=== PATIENT | male | born 1985 | race Caucasian/White ===

== ENCOUNTER 2019-11-01 21:07 | Emergency (ER) | payer OTHER, BC ==
--- NOTE | 2019-11-01 21:31 | EDM.PDOC ---
ED HPI GENERAL MEDICAL PROBLEM - General Chief Complaint: Skin Complaint Stated Complaint: POSSIBLE SPIDER BITE Time Seen by Provider: 11/01/19 21:07 Source of Information: Reports: Patient, Old Records History Limitations: Reports: No Limitations - History of Present Illness INITIAL COMMENTS - FREE TEXT/NARRATIVE: 34-year-old male with no past medical history presenting with concern for an infection of the right lower leg. Patient reports approximately 5 to 6 days of redness, pain, and swelling to the anterior aspect of the right lower leg. He developed a blister that he popped several days ago, which then began leaking pus. He was seen by a primary care clinic who prescribed oral Bactrim. He was concerned about persistent drainage of pus and redness so he comes to the emergency department for evaluation. He states that he has been on the Bactrim for at least 3 to 4 days. Denies any fever, chills, nausea, vomiting, diarrhea, history of immunosuppression. Past medical history: Reviewed, no additional pertinent history. Surgical history: Reviewed in system, no additional pertinent history. Social history: Reviewed in system, no additional pertinent history. Family history: Reviewed in system, no additional pertinent history. PHYSICAL EXAM Vital signs reviewed. Nursing notes reviewed. Constitutional: Awake, alert, non-distressed. Head: Normocephalic, atraumatic. Eyes: EOMI, conjunctiva normal, no discharge, no scleral icterus. Ears, Nose, Throat: External ears and nose normal, moist oral mucosa. Cardiovascular: 2+ radial pulse, capillary refill less than 2 seconds. Pulmonary: normal work of breathing, no accessory muscle use. Abdomen/GI: Soft, nontender, nondistended, no guarding or rigidity, no masses. Musculoskeletal: No deformities. Integumentary: Appropriate color for ethnicity, warm, dry, no pallor or jaundice, no rash. Erythema and warmth noted to the anterior aspect of the right lower leg consistent with cellulitis, there is a small area that is draining pus, no appreciable fluctuance or swelling to suggest a significant abscess. Neurologic: Alert, answering questions appropriately, normal speech, no facial droop, moving all extremities well. Psychiatric: Appropriate mood and affect, normal thought process. right knee, down right leg Pain Score (Numeric/FACES): 2 - Related Data Allergies Allergy/AdvReac Type Severity Reaction Status Date / Time No Known Allergies Allergy Verified 11/01/19 21:19 Home Meds: Home Meds Sulfamethoxazole/Trimethoprim [Bactrim Ds Tablet] 1 tab PO BID 11/01/19 [History] cephALEXin [Cephalexin] 500 mg PO QID 7 Days #28 capsule 11/01/19 [Rx] Past Medical History Respiratory History: Reports: Sleep Apnea - Infectious Disease History Infectious Disease History: Reports: Chicken Pox - Past Surgical History HEENT Surgical History: Reports: Oral Surgery Social & Family History - Family History Family Medical History: Noncontributory - Tobacco Use Smoking Status *Q: Current Every Day Smoker Years of Tobacco use: 20 Packs/Tins Daily: 0.5 - Caffeine Use Caffeine Use: Reports: Coffee - Recreational Drug Use Recreational Drug Use: No ED ROS GENERAL - Review of Systems Review Of Systems: See Below ED EXAM, SKIN/RASH Exam: See Below ED SKIN PROCEDURES - Additional/Other Procedure(s) Other (Free Text) Procedure(s): Procedure: Soft tissue ultrasound Indication: Swelling/pain Windows: Transverse, longitudinal Body area: Right lower leg, anterior Findings: Soft tissue cobblestoning, no evidence of a complex fluid collection Impression: Consistent with cellulitis, no evidence of an abscess Course - Vital Signs Text/Narrative:: 34-year-old male with right lower leg redness and pain. Afebrile, nontoxic, no systemic signs of illness. [id number] ultrasound consistent with cellulitis, no evidence of an abscess. No evidence of sepsis. Stable to discharge home. Continue previously prescribed Bactrim DS, will prescribe a one-week course of cephalexin. [id number] Tylenol and Motrin as needed for fever pain. Strict ED return precautions provided. All questions answered prior to discharge. Last Recorded V/S: Last Vital Signs Temp 35.9 C L 11/01/19 21:15 Pulse 71 11/01/19 21:15 Resp 18 11/01/19 21:15 BP 132/79 11/01/19 21:15 Pulse Ox 97 11/01/19 21:15 Departure - Departure Time of Disposition: 21:38 Disposition: Home, Self-Care 01 Condition: Good Clinical Impression: Cellulitis of right leg - Discharge Information *PRESCRIPTION DRUG MONITORING PROGRAM REVIEWED*: Not Applicable *COPY OF PRESCRIPTION DRUG MONITORING REPORT IN PATIENT CORA: Not Applicable Prescriptions: cephALEXin [Cephalexin] 500 mg PO QID 7 Days #28 capsule Instructions: Cellulitis, Adult Referrals: [facility] - Family Practice [Provider Group] - 1 Week (As needed) Forms: ED Department Discharge Additional Instructions: Thank you for choosing the [facility] emergency department in [place] for your medical needs today. It was a pleasure caring for you. You were seen in the emergency department for a right lower leg infection. Be sure to finish both of your antibiotic medications. You can take [id number] Tylenol or Motrin as needed for fever or pain. Please return the emergency department immediately if your symptoms worsen or if you feel worse. The following information is given to patients seen in the emergency department who are being discharged. This information is to outline your options for follow-up care. We provide all patients seen in our emergency department with a follow-up referral. The need for follow-up, as well as the timing and circumstances, are variable depending upon the specifics of your emergency department visit. If you don't have a primary care physician on staff, we will provide you with a referral. We always advise you to contact your personal physician following an emergency department visit to inform them of the circumstance of the visit and for follow-up with them and/or the need for any referrals to a consulting specialist. The emergency department will also refer you to a specialist when appropriate. This referral assures that you have the opportunity for follow-up care with a specialist. All of these measure are taken in an effort to provide you with optimal care, which includes your follow-up. Under all circumstances we always encourage you to contact your private physician who remains a resource for coordinating your care. When calling for follow-up care, please make the office aware that this follow-up is from your recent emergency room visit. If for any reason you are refused follow-up, please contact the [facility] Emergency Department at and asked to speak to the emergency department charge nurse. If you do not have a primary care physician that is caring for you, you can contact these clinics below to set up an appointment to establish care: [facility] - Primary Care [address] [place] [id number] [facility] [address] [place] [id number] Sepsis Event Note (ED) - Evaluation Sepsis Screening Result: No Definite Risk - Focused Exam Vital Signs: Vital Signs Temp Pulse Resp BP Pulse Ox 11/01/19 21:15 35.9 C L 71 18 132/79 97
== END 2019-11-01 21:45 | disposition home or self-care (01) ==
LOC: MW.ED 21:07
DX: L03.115 Cellulitis of right lower limb (principal); F17.210 Nicotine dependence, cigarettes, uncomplicated
CPT/HCPCS: 99282; 99283-25